=== PATIENT | male | born 1995 | race African-American/Black ===

== ENCOUNTER 2020-12-19 14:13 | Emergency (ER) | payer SELFPAY ==
[2020-12-19 14:18] VITALS: BP 131/70; PULSE 78; RESP 20; TEMP 36.8; O2SAT 99
--- NOTE | 2020-12-19 14:58 | ED.DENTAL ---
HPI - Dental/Oral General Chief complaint: Dental/Oral Stated complaint: L jaw swelling Time Seen by Provider: 12/19/20 14:50 Source: patient Mode of arrival: ambulatory Limitations: no limitations History of Present Illness HPI Narrative: This is a 25 year old male that presents to the ER for toothache present over the last couple of days. Reports swelling of the left side of his face. Denies fever, dysphagia or dyspnea. MD Complaint: tooth pain Location: Tooth # (19) Related Data Allergies Allergy/AdvReac Type Severity Reaction Status Date / Time No Known Allergies Allergy Verified 12/19/20 14:22 Review of Systems Review of Systems: CONSTITUTIONAL: Denies fever ENT: Reports dentalgia All systems reviewed & are unremarkable except as noted in HPI and below PMFSH Past Medical History Medical History (Updated 12/19/20 @ 15:03 by Bonnie Morocho PA-C) No active medical problems Social History Social History (Updated 12/19/20 @ 15:00 by Bonnie Morocho PA-C) Smoking status: Never smoker Exam Narrative: GENERAL: Well-appearing, well-nourished, and in no acute distress. HEAD: Normocephalic, atraumatic. EYES: EOMI. ENT: Nares clear, no rhinorrhea or epistaxis. Mucous membranes moist. Oropharynx without tonsillar hypertrophy exudate or other lesions. Tooth #19 is broken and tender to palpation. Mild surrounding erythema and edema, no fluctuance noted to suggest abscess. No trismus. Floor of mouth is soft NECK: Supple. Left sided tender submandibular adenopathy CHEST: Clear to auscultation. No respiratory distress. No wheezes rales or rhonchi HEART: Regular rate and rhythm. No murmur heard. Normal peripheral pulses. EXTREMITIES: Normal range of motion. No edema. SKIN: Warm, dry, no rash. NEURO: No focal deficits. Alert and oriented x3. PSYCH: Normal mood and affect Course Vital Signs Vital signs: Vital Signs Temperature 98.2 F 12/19/20 14:18 Pulse Rate 78 12/19/20 14:18 Respiratory Rate 20 12/19/20 14:18 Blood Pressure 131/70 12/19/20 14:18 Pulse Oximetry 99 12/19/20 14:18 Temperature 98.2 F 12/19/20 14:18 Pulse Rate 78 12/19/20 14:18 Respiratory Rate 20 12/19/20 14:18 Blood Pressure 131/70 12/19/20 14:18 Pulse Oximetry 99 12/19/20 14:18 MDM - Dental/Oral MDM Narrative Medical decision making narrative: Patient presents to the emergency department for dentalgia noted over the last couple of days. He is afebrile and nontoxic-appearing. There is edema and erythema surrounding the tooth. No fluctuance to suggest an abscess at this time. Patient will be started on oral antibiotics. He is stable and felt appropriate for further outpatient evaluation. He was given warnings to return to the ER Critical Care Time Critical Care Time Critical Care Time: No Discharge Plan Discharge Clinical Impression: Toothache Patient Disposition: Home, Self-Care Condition: Stable Instructions: Antibiotic Form, Toothache (ED) Additional Instructions: Return to the Emergency Department if you experience fever >101, increasing swelling and redness of your tooth, or any other symptoms that are concerning to you Take antibiotic as prescribed. Tylenol or Ibuprofen as needed for pain. You can apply a dab of clove oil to a Qtip and apply to the tooth to help numb the area Follow up with your dentist Prescriptions: New amoxicillin-pot clavulanate 875-125 mg tablet 1 tablet PO Q12H 10 Days Qty: 20 RF: 0 Follow-up/Referrals: PHYSICIAN,ARCHITECTURAL DRAFTER [Primary Care Provider] -
[2020-12-19] MEDS: AMOXICILLIN/CLAVULANATE K 875-125 MG TAB 1 TABLET PO (15:23)
[2020-12-19 15:26] VITALS: BP 132/78; PULSE 78; RESP 20; O2SAT 99
== END 2020-12-19 15:27 | disposition home or self-care (01) ==
PROVIDERS: Emergency Provider Emergency Medicine
DX: K08.89 Other specified disorders of teeth and supporting structures (principal)
CPT/HCPCS: 99283; A9270

== ENCOUNTER 2022-11-13 06:22 | Emergency (ER) | payer SELFPAY ==
[2022-11-13 06:23] VITALS: BP 128/66; PULSE 81; RESP 16; TEMP 36.6; O2SAT 97
--- NOTE | 2022-11-13 07:49 | ED.DENTAL ---
HPI - Dental/Oral General Chief complaint: Dental/Oral Stated complaint: L sided facial swelling Time Seen by Provider: 11/13/22 07:02 History of Present Illness HPI Narrative: Patient is a 27-year-old male who presents to the ER with left-sided facial swelling. Began over the last day. He has been having pain for 2 days before that. Has some fractured teeth. No fevers or chills or sweats. No difficulty breathing or swallowing. Related Data Allergies Allergy/AdvReac Type Severity Reaction Status Date / Time No Known Allergies Allergy Verified 11/13/22 06:29 Review of Systems Constitutional: Constitutional: Denies chills and Denies fever(s) ENT: Denies dysphagia Comments: Left lower jaw dental pain PMFSH Past Medical History Medical History (Updated 11/13/22 @ 07:50 by Juan Carlos Lugo MD) No active medical problems Social History Social History (Updated 12/19/20 @ 15:00 by Bonnie Morocho PA-C) Smoking status: Never smoker Exam Narrative: GENERAL: Well-appearing, well-nourished, and in no acute distress. HEAD: Normocephalic, atraumatic. ENT: Mucous membranes moist. Left lower jaw swelling. Tenderness at tooth #19 and 20 there is some fullness but no drainable abscess. NECK: Supple. NEURO: Alert and oriented x3. PSYCH: Normal mood and affect. Course Course Emergency Course: Antibiotics and pain medication for home. Vital Signs Vital signs: Vital Signs Temperature 97.8 F 11/13/22 06:23 Pulse Rate 81 11/13/22 06:23 Respiratory Rate 16 11/13/22 06:23 Blood Pressure 128/66 11/13/22 06:23 Pulse Oximetry 97 11/13/22 06:23 Oxygen Delivery Room Air 11/13/22 06:23 Temperature 97.8 F 11/13/22 06:23 Pulse Rate 81 11/13/22 06:23 Respiratory Rate 16 11/13/22 06:23 Blood Pressure 128/66 11/13/22 06:23 Pulse Oximetry 97 11/13/22 06:23 Oxygen Delivery Room Air 11/13/22 06:23 Discharge Plan Discharge Clinical Impression: Toothache Patient Disposition: Home, Self-Care Condition: Stable Instructions: Dental Abscess (ED) Additional Instructions: Return to the ER if you cannot breathe, you cannot swallow, or you have additional concerns. Follow-up with a dentist. Prescriptions: New hydrocodone-acetaminophen 5-325 mg tablet 1 tablet PO Q6H PRN (Reason: pain) Qty: 10 0RF amoxicillin-pot clavulanate 875-125 mg tablet 1 tablet PO Q12H Qty: 20 0RF No Action amoxicillin-pot clavulanate 875-125 mg tablet 1 tablet PO Q12H 10 Days Qty: 20 0RF Follow-up/Referrals: PHYSICIAN,HVAC SHEET METAL INSTALLER HELPER [Primary Care Provider] -
== END 2022-11-13 08:00 | disposition home or self-care (01) ==
PROVIDERS: Emergency Provider Emergency Medicine
DX: K08.89 Other specified disorders of teeth and supporting structures (principal)
CPT/HCPCS: 99283